=== PATIENT | female | born 1940 | race Caucasian/White ===

== ENCOUNTER 2018-07-08 14:06 | Outpatient (CLI) | payer OTHER | END 2018-07-08 14:20 | disposition home or self-care (01) | LOC: MAMO-SONO 14:06 | DX: N60.11 Diffuse cystic mastopathy of right breast (principal); N60.12 Diffuse cystic mastopathy of left breast; Z12.31 Encounter for screening mammogram for malignant neoplasm of breast; E04.1 Nontoxic single thyroid nodule ==

== ENCOUNTER → 2018-08-16 | Outpatient (CLI) | payer OTHER | END | disposition home or self-care (01) | LOC: TOM 14:41 | DX: G31.84 Mild cognitive impairment of uncertain or unknown etiology (principal) ==

== ENCOUNTER 2018-11-08 11:35 | Outpatient (CLI) | payer OTHER | END 2018-11-08 11:45 | disposition home or self-care (01) | LOC: LAB 11:35 | DX: R46.2 Strange and inexplicable behavior (principal) ==

== ENCOUNTER 2018-11-08 14:09 | Outpatient (CLI) | payer OTHER | END 2018-11-08 14:22 | disposition home or self-care (01) | LOC: MRI 14:09 | DX: R46.2 Strange and inexplicable behavior (principal) | CPT/HCPCS: 70552 ==